=== PATIENT | female | born 1950 | race Caucasian/White ===

== ENCOUNTER → 2017-08-15 | Outpatient (CLI) | payer OTHER, MEDICARE ==
[~2017-08-15] MED LIST: DILT-111
[2017-08-15 16:33] LABS: BASO % 0.4 %; BASO ABS # 0.03 K/uL (0-0.2); COMPLETE YES; EOS % 0.3 %; HEMATOCRIT 42.8 % (37-47); IG% 0.3 %; LYMPH % 48.8 %; LYMPH ABS # 3.85 K/uL (1.2-3.4); MEAN CELL VOLUME 104.9 fL (80-100); MEAN CORPUSCULAR HGB CONC 33.4 g/dl (32-36); MONO % 5.4 %; NEUT % 44.8 %; PLATELET COUNT 217 K/uL (130-400); RED BLOOD COUNT 4.08 M/uL (4.2-5.4); WHITE BLOOD COUNT 7.89 K/uL (4.8-10.8)
[2017-08-15 17:10] LABS: BLOOD UREA NITROGEN 11 mg/dl (7-18); BUN/CREATININE RATIO 12.5 (10-20); CALCIUM 9.3 mg/dl (8.5-10.1); CARBON DIOXIDE 27 mmol/L (21-32); CHLORIDE 105 mmol/L (98-107); CREATININE 0.85 mg/dl (0.60-1.20); GLUCOSE 91 mg/dl (70-99); POTASSIUM 3.9 mmol/L (3.5-5.1); SODIUM 140 mmol/L (136-145)
== END | disposition home or self-care (01) ==
LOC: C.LAB1850 15:03
PROVIDERS: ATTEND Internal Medicine
DX: I10 Essential (primary) hypertension (principal)

== ENCOUNTER → 2017-09-29 | Outpatient (CLI) | payer OTHER, MEDICARE ==
--- NOTE | 2017-09-29 12:50 | MAMMOGRAPHY REPORT ---
BILATERAL DIGITAL SCREENING MAMMOGRAM WITH CAD: 09/29/2017 CLINICAL HISTORY: Routine screening. Patient has no complaints. TECHNIQUE: Current study was also evaluated with a Computer Aided Detection (CAD) system. Bilateral CC and MLO views were obtained. COMPARISON: Comparison is made to exams dated: 07/08/2015 mammogram, 07/07/2014 mammogram, 05/21/2013 m ammogram, 05/01/2012 mammogram, 03/25/2011 mammogram, and 03/24/2010 mammogram - [facility] enter. BREAST COMPOSITION: The tissue of both breasts is heterogeneously dense, which may obscure small mas ses. FINDINGS: No suspicious masses, calcifications, or areas of architectural distortion are noted in ei ther breast. There has been no significant interval change compared to prior exams. Nodular asymmetr y in the right superior posterior breast on the MLO view is stable compared to multiple prior exams i ncluding the 2012 and 2008 exams, and is considered benign given long-term stability and likely repre sents an intramammary lymph node. IMPRESSION: ACR BI-RADS CATEGORY 2: BENIGN There is no mammographic evidence of malignancy. A 1 year screening mammogram is recommended. The pa tient will receive written notification of the results. Approximately 10% of breast cancers are not detected with mammography. A negative mammographic report should not delay biopsy if a clinically suggestive mass is present. Mary Grace Aviles M.D. /:09/29/2017 12:20:48 Home Maker: Isabella Pearl RT(R)(M), [facility] letter sent: Normal 1/2 BI-RADS Code: ACR BI-RADS Category 2: Benign
== END | disposition home or self-care (01) ==
LOC: C.MAMM 11:36
PROVIDERS: ATTEND Internal Medicine
DX: Z12.31 Encounter for screening mammogram for malignant neoplasm of breast (principal)

== ENCOUNTER 2023-09-12 12:46 | Inpatient (IN) ==
--- NOTE | 2023-09-12 12:53 | Emergency Department Note ---
Impression & Plan Acute hypoxemic respiratory failure, RSV (respiratory syncytial virus infection), Viral pneumonia, Tobacco abuse ED Provider Note NAME: BETITO RIZVI AGE: 69 SEX: F : 02/23/1954 ARRIVES VIA: Walk-In INFORMANT: Patient, ED PROVIDER(S): Jad Richardson MD CHIEF COMPLAINT: Shortness of breath MEDICAL DECISION MAKING: Patient presents due to concern for associated shortness of breath. The patient was tachypneic with conversational dyspnea. IV was established blood obtained. Patient was ordered empiric antibiotics IV fluids procalcitonin blood cultures. Patient did receive nebulizer treatments steroids and magnesium as well. I did discuss starting the patient on antibiotics given the patient's history of partially treated UTI. Inpatient service order antibiotics. Patient's blood work shows a white count of 10.9 with a normal H&H and platelet count. The patient's VBG does show some mild acidosis but normal pCO2. Low sodium at 134 and potassium 3.1. Lactate of 1.9 procalcitonin is not elevated. Patient was ordered a MRSA swab. Bio fire positive for RSV. Urinalysis without evidence of obvious infection. Chest x-ray does not show any obvious consolidative pneumonia. Upon reassessment the patient clinically did appear improved and was currently off BiPAP. I did speak with the inpatient hospitalist service and the patient was admitted to the medicine service. Patient's heart rate did improve with IV fluids as well as medication management Critical Care: I have personally spent 45 minutes of critical care time in direct management of this patient. This includes bedside care, interpretation of diagnostic studies, and testing, discussion with consultants, patient, and family members, and other require inpatient management activities. This 45 minutes is in excess of all separately billable procedures. Discussion w/ other healthcare providers: Dr. Marr inpatient medicine Prior /Outside records reviewed: I reviewed a wellness visit from August 02, [address] Moncada. Patient was seen for her Medicare annual wellness exam does have a known history of monoclonal B-cell lymphocytosis. Differential diagnosis: Reactive airway disease, pneumonia, pneumothorax, COPD, CHF, ACS, pulmonary embolism, musculoskeletal, GERD as well as other pathologies were considered. Diagnostics, as interpreted by me: ECG: Sinus tachycardia, ventricular rate of 116 normal QRS duration, left axis deviation, incomplete right bundle branch block. Cardiac monitoring: An order was placed for continuous cardiac monitoring. The monitor shows a rate of 135 with tachycardic and regular rhythm. Patient was placed on pulse oximetry Medical decision rules: None Imaging studies: I informally interpreted the patient's chest x-ray which does not show obvious pneumonia or pneumothorax with formal report to follow. HPI: Patient presents with upper respiratory symptoms and associated shortness of breath. Patient states that her symptoms began Monday or Monday and they have gotten progressively worse. The patient does admit to a cough that is somewhat productive but not discolored with sputum. The patient does smoke. Patient does not have any formal history of COPD or reactive airway disease. Patient denies any chest pains. Patient [place] any leg swelling or calf pain. The patient reportedly was feeling quite winded and short of breath at rest at home and her pulse ox on room air was in the 84%. Patient is accompanied by her and he also relates the same. He is a former emergency department physician. Patient denies any nausea or vomiting but has had decreased p.o. intake and appetite PAST MEDICAL HISTORY: See Below PAST SURGICAL HISTORY: See Below SOCIAL HISTORY: See Below HOME MEDICATIONS: See Below ALLERGIES: See Below VITALS: See Below PHYSICAL EXAMINATION: GENERAL: Thin in appearance, wearing glasses, mild distress conversational dyspnea nasal cannula in place. EYE EXAM: Normal conjunctiva. PERRL, no anisocoria and EOM's grossly intact w/o pain. OROPHARYNX: Moist mucus membranes, grossly normal dentition. NECK: Supple, no nuchal rigidity, no adenopathy, non-tender. No signs of meningismus. FROM of the neck with good chin to chest and neck extension. No stridor. LUNGS: Decreased breath sounds throughout. Normal chest wall mechanics. HEART: NSR, no MRG. ABDOMEN: Abdomen soft, non-tender, no masses, no rebound or guarding. BACK: No CVA TTP. SKIN: No rashes and no bruising. UPPER EXTREMITIES: Upper extremities are grossly normal. LOWER EXTREMITIES: Grossly normal, no edema. Negative Homans' sign bilaterally. NEURO EXAM: A&O x3, cranial nerves II-XII grossly intact, normal speech, moves all 4 extremities. Past Med/Surg History Medical History (Updated 09/13/23 @ 16:57 by Jad Richardson MD) Monoclonal B-cell lymphocytosis Underweight Celiac sprue Arthralgia of multiple sites Fibromuscular hyperplasia of artery Macrocytosis Osteoporosis Surgical History (System 09/13/23 @ 07:41 by Anna Crisostomo) S/P wisdom tooth extraction S/P cholecystectomy S/P ectopic Family History Mother Breast cancer Father Myocardial infarction Denies family history of Ovarian cancer Prostate cancer Colorectal cancer Social History (System 09/13/23 @ 07:41 by Anna Crisostomo) Smoking Status: Light tobacco smoker Second Hand Exposure: No; Do You Dip or Chew Tobacco: No; Hx Alcohol Use: Yes (1-2 glass of wine at dinner) Alcohol type: wine Hx Substance Use: No Preferred Language: Hungarian Communication Ability: Effective Glass Carrier Required: No Beliefs That Will Affect Care: None marital status: Current Living Situation: Spouse current occupational status: retired Other Information That Helps Us Care for You: No Feels Safe at Home: Yes Childhood Exposure to Second-Hand Smoke: Yes Dental Care, Regularly: Yes Physical Activity Frequency: 1-2 Times per Week Seatbelt Use: always Sunscreen Use: Yes Assistive Devices: None Allergies Allergies Allergy/AdvReac Type Severity Reaction Status Date / Time Sulfa (Sulfonamide Allergy Unknown RASH Verified 09/13/23 07:41 Antibiotics) Home Meds Home Medications Medication Instructions Recorded Confirmed diltiazem HCl 240 mg 240 mg PO DAILY 09/12/23 09/12/23 capsule,extended release 24 hr fluticasone propionate 50 2 spray intranasal DAILY PRN 09/12/23 09/12/23 mcg/actuation nasal Allergy Symptoms spray,suspension indapamide 1.25 mg tablet 1.25 mg PO DAILY 09/12/23 09/12/23 Previous Rx's Medication Instructions Recorded diltiazem HCl 240 mg 240 mg PO DAILY #90 caps 08/02/23 capsule,extended release 24 hr fluticasone propionate 50 2 spray intranasal DAILY PRN 08/02/23 mcg/actuation nasal allergy symptoms #16 grams spray,suspension indapamide 1.25 mg tablet 1.25 mg PO DAILY #90 tabs 08/02/23 nitrofurantoin macrocrystal 50 mg 50 mg PO DAILY PRN following 08/02/23 capsule intercourse for UTI prevention #30 caps Results & Data (ED) Vital Signs Vital Signs - 24 hr 09/12/23 17:19 09/12/23 17:36 09/12/23 18:46 Temperature Temperature Source Pulse Rate 77 Pulse Rate [Exercise O2 Corrective 1] Pulse Rate [Exercise O2 Corrective 2] Pulse Rate [Exercise Room Air] Pulse Rate [Resting] Pulse Rate [Right] 91 H 73 Respiratory Rate 20 12 Respiratory Rate [Exercise O2 Corrective 1] Respiratory Rate [Exercise O2 Corrective 2] Respiratory Rate [Exercise Room Air] Respiratory Rate [Resting] Respiratory Effort / Characteristics Respiratory Depth Respiratory Pattern Blood Pressure [Right Arm] 124/73 117/73 Blood Pressure Mean [Right Arm] 90 87 Blood Pressure Position [Right Arm] Pulse Oximetry 94 96 Pulse Oximetry [Exercise O2 Corrective 1] Pulse Oximetry [Exercise O2 Corrective 2] Pulse Oximetry [Exercise Room Air] Pulse Oximetry [Resting] Oxygen Delivery Method Nasal Cannula Nasal Cannula Oxygen Flow Rate 3 Oxygen Flow Rate [Exercise O2 Corrective 1] Oxygen Flow Rate [Exercise O2 Corrective 2] EWS Level of Consciousness - Last Result EWS Temperature - Last Result EWS Respiratory Rate - Last Result EWS Oxygen Saturation - Last Result EWS Oxygen in Use - Last Result EWS Lactate - Last Result EWS Score EWS Clinical Risk 09/12/23 20:25 09/12/23 20:25 09/12/23 21:50 Temperature 37.0 C 36.3 C L Temperature Source Oral Oral Pulse Rate Pulse Rate [Exercise O2 Corrective 1] Pulse Rate [Exercise O2 Corrective 2] Pulse Rate [Exercise Room Air] Pulse Rate [Resting] Pulse Rate [Right] 87 90 Respiratory Rate 17 16 Respiratory Rate [Exercise O2 Corrective 1] Respiratory Rate [Exercise O2 Corrective 2] Respiratory Rate [Exercise Room Air] Respiratory Rate [Resting] Respiratory Effort / Characteristics Spontaneous Spontaneous Short of Breath Respiratory Depth Normal Respiratory Pattern Regular Regular Blood Pressure [Right Arm] 116/72 123/86 Blood Pressure Mean [Right Arm] 86 98 Blood Pressure Position [Right Arm] Sitting Pulse Oximetry 97 98 Pulse Oximetry [Exercise O2 Corrective 1] Pulse Oximetry [Exercise O2 Corrective 2] Pulse Oximetry [Exercise Room Air] Pulse Oximetry [Resting] Oxygen Delivery Method Nasal Cannula Nasal Cannula Nasal Cannula Oxygen Flow Rate 2 2 2 Oxygen Flow Rate [Exercise O2 Corrective 1] Oxygen Flow Rate [Exercise O2 Corrective 2] EWS Level of Consciousness - Last Result EWS Temperature - Last Result EWS Respiratory Rate - Last Result EWS Oxygen Saturation - Last Result EWS Oxygen in Use - Last Result EWS Lactate - Last Result EWS Score EWS Clinical Risk 09/12/23 22:00 09/12/23 22:00 09/12/23 22:00 Temperature Temperature Source Pulse Rate 64 Pulse Rate [Exercise O2 Corrective 1] Pulse Rate [Exercise O2 Corrective 2] Pulse Rate [Exercise Room Air] Pulse Rate [Resting] Pulse Rate [Right] Respiratory Rate Respiratory Rate [Exercise O2 Corrective 1] Respiratory Rate [Exercise O2 Corrective 2] Respiratory Rate [Exercise Room Air] Respiratory Rate [Resting] Respiratory Effort / Characteristics Non-Labored Spontaneous Short of Breath SOB on Exertion Respiratory Depth Normal Respiratory Pattern Regular Blood Pressure [Right Arm] Blood Pressure Mean [Right Arm] Blood Pressure Position [Right Arm] Pulse Oximetry Pulse Oximetry [Exercise O2 Corrective 1] Pulse Oximetry [Exercise O2 Corrective 2] Pulse Oximetry [Exercise Room Air] Pulse Oximetry [Resting] Oxygen Delivery Method Nasal Cannula Oxygen Flow Rate 2 Oxygen Flow Rate [Exercise O2 Corrective 1] Oxygen Flow Rate [Exercise O2 Corrective 2] EWS Level of Consciousness - Last Result Spontaneously Alert EWS Temperature - Last Result 36.3 EWS Respiratory Rate - Last Result 16 EWS Oxygen Saturation - Last Result 98 EWS Oxygen in Use - Last Result Yes EWS Lactate - Last Result 1.9 EWS Score 0 EWS Clinical Risk Low Risk 09/13/23 03:16 09/13/23 03:17 09/13/23 06:00 Temperature 36.4 C L Temperature Source Oral Pulse Rate 76 Pulse Rate [Exercise O2 Corrective 1] Pulse Rate [Exercise O2 Corrective 2] Pulse Rate [Exercise Room Air] Pulse Rate [Resting] Pulse Rate [Right] 79 Respiratory Rate 18 Respiratory Rate [Exercise O2 Corrective 1] Respiratory Rate [Exercise O2 Corrective 2] Respiratory Rate [Exercise Room Air] Respiratory Rate [Resting] Respiratory Effort / Characteristics Respiratory Depth Respiratory Pattern Blood Pressure [Right Arm] 122/85 Blood Pressure Mean [Right Arm] 97 Blood Pressure Position [Right Arm] Lying Pulse Oximetry 97 Pulse Oximetry [Exercise O2 Corrective 1] Pulse Oximetry [Exercise O2 Corrective 2] Pulse Oximetry [Exercise Room Air] Pulse Oximetry [Resting] Oxygen Delivery Method Nasal Cannula Oxygen Flow Rate 2 Oxygen Flow Rate [Exercise O2 Corrective 1] Oxygen Flow Rate [Exercise O2 Corrective 2] EWS Level of Consciousness - Last Result Spontaneously Alert EWS Temperature - Last Result 36.4 EWS Respiratory Rate - Last Result 18 EWS Oxygen Saturation - Last Result 97 EWS Oxygen in Use - Last Result Yes EWS Lactate - Last Result 1.9 EWS Score 0 EWS Clinical Risk Low Risk 09/13/23 08:45 09/13/23 08:46 09/13/23 10:08 Temperature 36.7 C Temperature Source Oral Pulse Rate Pulse Rate [Exercise O2 Corrective 1] 117 H Pulse Rate [Exercise O2 Corrective 2] 113 H Pulse Rate [Exercise Room Air] 117 H Pulse Rate [Resting] 103 H Pulse Rate [Right] 72 Respiratory Rate 16 Respiratory Rate [Exercise O2 Corrective 1] 19 Respiratory Rate [Exercise O2 Corrective 2] 21 Respiratory Rate [Exercise Room Air] 19 Respiratory Rate [Resting] 15 Respiratory Effort / Characteristics Respiratory Depth Respiratory Pattern Blood Pressure [Right Arm] 123/88 Blood Pressure Mean [Right Arm] 99 Blood Pressure Position [Right Arm] Pulse Oximetry 98 Pulse Oximetry [Exercise O2 Corrective 1] 87 L Pulse Oximetry [Exercise O2 Corrective 2] 92 Pulse Oximetry [Exercise Room Air] 86 L Pulse Oximetry [Resting] 92 Oxygen Delivery Method Nasal Cannula Oxygen Flow Rate 2 Oxygen Flow Rate [Exercise O2 Corrective 1] 1 Oxygen Flow Rate [Exercise O2 Corrective 2] 2 EWS Level of Consciousness - Last Result Spontaneously Alert EWS Temperature - Last Result 36.7 EWS Respiratory Rate - Last Result 16 EWS Oxygen Saturation - Last Result 98 EWS Oxygen in Use - Last Result Yes EWS Lactate - Last Result 1.9 EWS Score 0 EWS Clinical Risk Low Risk 09/13/23 11:54 09/13/23 11:55 Temperature 36.6 C Temperature Source Oral Pulse Rate Pulse Rate [Exercise O2 Corrective 1] Pulse Rate [Exercise O2 Corrective 2] Pulse Rate [Exercise Room Air] Pulse Rate [Resting] Pulse Rate [Right] 96 H Respiratory Rate 16 Respiratory Rate [Exercise O2 Corrective 1] Respiratory Rate [Exercise O2 Corrective 2] Respiratory Rate [Exercise Room Air] Respiratory Rate [Resting] Respiratory Effort / Characteristics Respiratory Depth Respiratory Pattern Blood Pressure [Right Arm] 128/82 Blood Pressure Mean [Right Arm] 97 Blood Pressure Position [Right Arm] Pulse Oximetry 95 Pulse Oximetry [Exercise O2 Corrective 1] Pulse Oximetry [Exercise O2 Corrective 2] Pulse Oximetry [Exercise Room Air] Pulse Oximetry [Resting] Oxygen Delivery Method Room Air Oxygen Flow Rate Oxygen Flow Rate [Exercise O2 Corrective 1] Oxygen Flow Rate [Exercise O2 Corrective 2] EWS Level of Consciousness - Last Result Spontaneously Alert EWS Temperature - Last Result 36.6 EWS Respiratory Rate - Last Result 16 EWS Oxygen Saturation - Last Result 95 EWS Oxygen in Use - Last Result No EWS Lactate - Last Result 1.9 EWS Score 2 EWS Clinical Risk Low Risk Home Medications Current Medication List: was personally reviewed by me Laboratory Data Attestation: I reviewed the patient's lab results. 09/13/23 05:21 09/13/23 05:21 Lab Results 09/12/23 09/12/23 09/12/23 Range/Units 13:27 14:16 15:59 WBC 10.93 H (4.8-10.8) K/ul RBC 4.46 (4.20-5.40) M/uL Hgb 15.7 (12.0-16.0) g/dl Hct 45.9 (37.0-47.0) % MCV 102.9 H (80.0-100.0) fL MCH 35.2 H (25.0-34.0) pg MCHC 34.2 (32.0-36.0) g/dL RDW Std Deviation 45.3 (36.4-46.3) fL RDW Coeff of Carolyn 11.9 (11.5-14.5) % Plt Count 204 (130-400) K/uL MPV 9.9 (9.4-12.4) fL Immature Gran % (Auto) 0.5 % Neut % (Auto) 76.5 % Lymph % (Auto) 18.1 % [place] % (Auto) 4.8 % Eos % (Auto) 0.0 % Baso % (Auto) 0.1 % Neut # (Auto) 8.35 H (1.40-6.50) K/uL Lymph # (Auto) 1.98 (1.20-3.40) K/uL [place] # (Auto) 0.53 (0.11-0.59) K/uL Eos # (Auto) 0.00 (0.00-0.50) K/uL Baso # (Auto) 0.01 (0.00-0.20) K/uL Immature Gran # (Auto) 0.06 (0.01-0.20) K/uL Polychromasia PT 10.7 (9.0-12.0) Seconds INR 1.0 (0.9-1.1) APTT 32 H (21-31) Seconds PTT Ratio 1.1 VBG pH 7.31 L (7.36-7.41) VBG pCO2 49 (38-50) mmHg VBG pO2 23 mmHg VBG HCO3 25 mmol/L VBG O2 Saturation < 60.0 % VBG Base Excess -2.1 mEq/L Sodium 134 L (136-145) mmol/L Potassium 3.1 L (3.5-5.1) mmol/L Chloride 96 L (98-107) mmol/L Carbon Dioxide 25 (21-32) mmol/L Anion Gap 13 H (3-11) BUN 14 (6-23) mg/dl Creatinine 0.81 (0.6-1.2) mg/dl Est Cr Clr Drug Dosing Not Reportable Est GFR ( Amer) 84.1 ml/min Est GFR (Non-Af Amer) 72.6 ml/min BUN/Creatinine Ratio 17.3 (10-20) Glucose 142 H (70-99(Fasting)) mg/dl Lactate 1.9 (0.4-2.0) mmol/L Calcium 9.6 (8.6-10.3) mg/dl Phosphorus 3.9 (2.5-4.9) mg/dl Magnesium 1.9 (1.7-2.4) mg/dl Total Bilirubin 0.8 (0.2-1.0) mg/dl AST 22 (13-39) U/L ALT 14 (7-52) U/L Alkaline Phosphatase 73 (34-104) U/L Total Protein 7.7 (6.0-8.3) gm/dl Albumin 4.4 (3.4-5.0) gm/dl Globulin 3.3 (2.5-4.0) gm/dl Albumin/Globulin Ratio 1.3 (0.9-2) Procalcitonin < 0.05 (0-0.5) ng/ml Urine Color Urine Appearance (Clear) Urine pH (4.5-7.5) Ur Specific [place] (1.000-1.030) Urine Protein (Negative) Urine Glucose (UA) (Negative) Urine Ketones (Negative) Urine Blood (Negative) Urine Nitrite (Negative) Urine Bilirubin (Negative) Urine Urobilinogen (Negative) Ur Leukocyte Esterase (Negative) Urine WBC (Auto) (0-5) /hpf Urine RBC (Auto) (0-4) /hpf U Hyaline Cast (Auto) (0-5) /lpf U Epithel Cells (Auto) (0-5) /lpf Urine Bacteria (Auto) (Negative) Nasal Screen MRSA (PCR) Negative (Negative) Adenovirus (PCR) (NotDetected) B. pertussis DNA (PCR) (NotDetected) B.parapertussis DNA PCR (NotDetected) C. pneumoniae DNA (PCR) (NotDetected) Coronavirus OC43 (PCR) (NotDetected) Coronavirus HKU1 (PCR) (NotDetected) Coronavirus 229E (PCR) (NotDetected) SARS-CoV-2 (PCR) (NotDetected) Coronavirus NL63 (PCR) (NotDetected) Human Metapneumovir PCR (NotDetected) Influenza Type A (PCR) (NotDetected) Influenza Type B (PCR) (NotDetected) M. pneumoniae (PCR) (NotDetected) Parainfluenza 1 (PCR) (NotDetected) Parainfluenza 2 (PCR) (NotDetected) Parainfluenza 3 (PCR) (NotDetected) Parainfluenza 4 (PCR) (NotDetected) RSV (PCR) (NotDetected) Entero/Rhino (PCR) (NotDetected) 09/12/23 09/13/23 09/13/23 Range/Units Unknown 04:45 05:21 WBC 8.38 (4.8-10.8) K/ul RBC 3.81 L (4.20-5.40) M/uL Hgb 13.3 (12.0-16.0) g/dl Hct 39.6 (37.0-47.0) % MCV 103.9 H (80.0-100.0) fL MCH 34.9 H (25.0-34.0) pg MCHC 33.6 (32.0-36.0) g/dL RDW Std Deviation 45.7 (36.4-46.3) fL RDW Coeff of Carolyn 11.9 (11.5-14.5) % Plt Count 159 (130-400) K/uL MPV 10.0 (9.4-12.4) fL Immature Gran % (Auto) 0.5 % Neut % (Auto) 71.0 % Lymph % (Auto) 23.0 % [place] % (Auto) 5.4 % Eos % (Auto) 0.0 % Baso % (Auto) 0.1 % Neut # (Auto) 5.95 (1.40-6.50) K/uL Lymph # (Auto) 1.93 (1.20-3.40) K/uL [place] # (Auto) 0.45 (0.11-0.59) K/uL Eos # (Auto) 0.00 (0.00-0.50) K/uL Baso # (Auto) 0.01 (0.00-0.20) K/uL Immature Gran # (Auto) 0.04 (0.01-0.20) K/uL Polychromasia 1+ PT (9.0-12.0) Seconds INR (0.9-1.1) APTT (21-31) Seconds PTT Ratio VBG pH (7.36-7.41) VBG pCO2 (38-50) mmHg VBG pO2 mmHg VBG HCO3 mmol/L VBG O2 Saturation % VBG Base Excess mEq/L Sodium 139 (136-145) mmol/L Potassium 3.8 D (3.5-5.1) mmol/L Chloride 106 (98-107) mmol/L Carbon Dioxide 26 (21-32) mmol/L Anion Gap 7 (3-11) BUN 15 (6-23) mg/dl Creatinine 0.65 (0.6-1.2) mg/dl Est Cr Clr Drug Dosing 57.8 Est GFR ( Amer) 102.8 ml/min Est GFR (Non-Af Amer) 88.7 ml/min BUN/Creatinine Ratio 23.1 H (10-20) Glucose 133 H (70-99(Fasting)) mg/dl Lactate (0.4-2.0) mmol/L Calcium 8.8 (8.6-10.3) mg/dl Phosphorus (2.5-4.9) mg/dl Magnesium (1.7-2.4) mg/dl Total Bilirubin (0.2-1.0) mg/dl AST (13-39) U/L ALT (7-52) U/L Alkaline Phosphatase (34-104) U/L Total Protein (6.0-8.3) gm/dl Albumin (3.4-5.0) gm/dl Globulin (2.5-4.0) gm/dl Albumin/Globulin Ratio (0.9-2) Procalcitonin (0-0.5) ng/ml Urine Color Yellow Urine Appearance Cloudy A (Clear) Urine pH 6.5 (4.5-7.5) Ur Specific [place] 1.023 (1.000-1.030) Urine Protein 1+ H (Negative) Urine Glucose (UA) Negative (Negative) Urine Ketones Trace H (Negative) Urine Blood Negative (Negative) Urine Nitrite Negative (Negative) Urine Bilirubin Negative (Negative) Urine Urobilinogen Negative (Negative) Ur Leukocyte Esterase Negative (Negative) Urine WBC (Auto) 1-5 (0-5) /hpf Urine RBC (Auto) 0-4 (0-4) /hpf U Hyaline Cast (Auto) 1-5 (0-5) /lpf U Epithel Cells (Auto) >30 H (0-5) /lpf Urine Bacteria (Auto) Negative (Negative) Nasal Screen MRSA (PCR) (Negative) Adenovirus (PCR) Not Detected (NotDetected) B. pertussis DNA (PCR) Not Detected (NotDetected) B.parapertussis DNA PCR Not Detected (NotDetected) C. pneumoniae DNA (PCR) Not Detected (NotDetected) Coronavirus OC43 (PCR) Not Detected (NotDetected) Coronavirus HKU1 (PCR) Not Detected (NotDetected) Coronavirus 229E (PCR) Not Detected (NotDetected) SARS-CoV-2 (PCR) Not Detected (NotDetected) Coronavirus NL63 (PCR) Not Detected (NotDetected) Human Metapneumovir PCR Not Detected (NotDetected) Influenza Type A (PCR) Not Detected (NotDetected) Influenza Type B (PCR) Not Detected (NotDetected) M. pneumoniae (PCR) Not Detected (NotDetected) Parainfluenza 1 (PCR) Not Detected (NotDetected) Parainfluenza 2 (PCR) Not Detected (NotDetected) Parainfluenza 3 (PCR) Not Detected (NotDetected) Parainfluenza 4 (PCR) Not Detected (NotDetected) RSV (PCR) DETECTED A* (NotDetected) Entero/Rhino (PCR) Not Detected (NotDetected) Administered Medications Albuterol (Albut/Ipratrop 3mg/0.5mg Neb 3 Ml Vial) 3 ml NEB QIDR [facility]; Protocol Stop: 10/13/23 14:59 Last Admin: 09/13/23 15:20 Dose: 3 ml Documented By: [id number] Diltiazem HCl (Diltiazem Hcl 240 Mg Capcr) 240 mg PO DAILY [facility] Stop: 10/13/23 08:59 Last Admin: 09/13/23 10:33 Dose: 240 mg Documented By: FAZAL Enoxaparin Sodium (Enoxaparin Inj 30 Mg/0.3 Ml Syr) 30 mg SQ QAM [facility] Stop: 10/13/23 08:59 Last Admin: 09/13/23 10:33 Dose: 30 mg Documented By: FAZAL Guaifenesin (Guaifenesin 600 Mg Tabcr) 600 mg PO Q12 [facility] Stop: 10/12/23 20:59 Last Admin: 09/13/23 10:33 Dose: 600 mg Documented By: Admin: 09/12/23 20:15 Dose: 600 mg Documented By: MARICRUZ Indapamide (Indapamide 1.25 Mg Tab) 1.25 mg PO DAILY [facility] Stop: 10/13/23 08:59 Last Admin: 09/13/23 10:33 Dose: 1.25 mg Documented By: FAZAL Miscellaneous (Remove Nicoderm Patch) 1 each N/A DAILY@0859 [facility] Stop: 10/13/23 08:58 Last Admin: 09/13/23 10:32 Dose: Not Given Documented By: FAZAL Discontinued Medications Magnesium Sulfate/Dextrose (Magnesium Sulfate / D5w) 1 gm in 100 mls @ 300 mls/hr IV Q10M [facility] Stop: 09/12/23 13:42 Last Infusion: 09/12/23 17:41 Dose: Infused Documented By: Admin: 09/12/23 17:18 Dose: 100 mls/hr Documented By: Infusion: 09/12/23 15:13 Dose: Infused Documented By: Admin: 09/12/23 13:40 Dose: 300 mls/hr Documented By: KV Doxycycline Hyclate 100 mg/ (Dextrose) 100 mls @ 50 mls/hr IV NOW STA Stop: 09/12/23 15:20 Last Infusion: 09/12/23 17:18 Dose: Infused Documented By: Admin: 09/12/23 15:13 Dose: 50 mls/hr Documented By: HANNAHB Piperacillin Sod/Tazobactam Sod (Zosyn) 4.5 gm in 100 mls @ 200 mls/hr IV NOW ONE Stop: 09/12/23 13:50 Last Infusion: 09/12/23 15:25 Dose: Infused Documented By: Admin: 09/12/23 13:39 Dose: 200 mls/hr Documented By: ROBE Sodium Chloride (Nss) 1,000 mls @ 999 mls/hr IV .Q1H1M ONE Stop: 09/12/23 14:21 Last Infusion: 09/12/23 15:25 Dose: Infused Documented By: Admin: 09/12/23 13:39 Dose: 999 mls/hr Documented By: KV Sodium Chloride (Nss) 500 mls @ 999 mls/hr IV .Q31M ONE Stop: 09/12/23 13:51 Last Infusion: 09/12/23 15:25 Dose: Infused Documented By: Admin: 09/12/23 13:40 Dose: 999 mls/hr Documented By: KV Methylprednisolone (Methylprednisolone 125 Mg/2 Ml Vial) 125 mg IV NOW STA Stop: 09/12/23 13:33 Last Admin: 09/12/23 13:39 Dose: 125 mg Documented By: KV Potassium Chloride (Potassium Chloride Crtab 20 Meq Tabcr) 40 meq PO NOW STA Stop: 09/12/23 14:58 Last Admin: 09/12/23 15:58 Dose: 40 meq Documented By: ASW Potassium Chloride (Potassium Chloride Crtab 20 Meq Tabcr) 20 meq PO ONE ONE Stop: 09/12/23 21:01 Last Admin: 09/12/23 20:15 Dose: 20 meq Documented By: AMS Imaging Data Radiologist's Impression: Chest X-Ray 09/12/23 13:21 XR chest 1V portable CLINICAL HISTORY: Dyspnea. COMPARISON STUDY: No previous studies for comparison. FINDINGS: Lung volumes are normal. There is no consolidation to suggest pneumonia. 1 cm nodular density inferior to the right hilum is noted. 1.1 cm left infrahilar nodular density is noted There is no pneumothorax or pleural effusion. Cardiac size is normal. Mediastinal contours are normal. There is no evidence for pulmonary edema. IMPRESSION: 1. No acute cardiopulmonary findings. 2. Bilateral infrahilar nodular densities, as described above. Nonemergent chest CT is recommended to exclude pulmonary nodules. ACT 112: Positive. There are findings on this exam that require communication between the performing entity and the patient following Patient Test Result Information Act ([place] Act 112) guidelines. Electronically signed by: Ari Knox M.D. 09/12/2023 2:[address] 09/12/23 18:09 Exam(s): CT CHEST Without Contrast EXAM: CT Chest Without Intravenous Contrast CLINICAL HISTORY: Reason for exam: hilar nodular densities, hypoxia. TECHNIQUE: Axial computed tomography images of the chest without intravenous contrast. CTDI is 6.42 mGy and DLP is 242.8 mGy-cm. Automated exposure control was utilized for the study. A dose lowering technique was utilized adhering to the principles of ALARA. COMPARISON: No relevant prior studies available. FINDINGS: Lungs: Mild, patchy bilateral opacities, correlate for mild pneumonia. There may be early cavitation in a few of these areas of atelectasis. Recommend follow-up chest CT after treatment to reevaluate. Pleural space: Unremarkable. No pleural effusion or pneumothorax. Heart: Unremarkable. No cardiomegaly. No significant pericardial effusion. No significant coronary artery calcifications. Bones/joints: Degenerative changes of the spine. No acute fracture. No dislocation. Soft tissues: Unremarkable. Vasculature: Atherosclerotic changes of the aorta. No thoracic aortic aneurysm. Lymph nodes: Unremarkable. No enlarged lymph nodes. Liver: Cystic lesion LEFT hepatic lobe measures 2.6 cm. Gallbladder and bile ducts: Cholecystectomy. IMPRESSION: 1. Mild, patchy bilateral opacities, correlate for mild pneumonia. Suspected, early cavitation in a few of these areas of atelectasis. Recommend follow-up chest CT after treatment to reevaluate. 2. No pleural effusion or pneumothorax. Electronically signed by: Rafiq Maldonado MD 09/12/23 20:04 PM Discharge Plan Visit Data Chief Complaint: Shortness of Breath/Dyspnea Stated Complaint: SOB, LOW OX SAT, COUGH ED Provider: Jad Richardson Discharge Problem: Acute hypoxemic respiratory failure, RSV (respiratory syncytial virus infection), Viral pneumonia, Tobacco abuse Patient Disposition: Admitted As Inpatient Discharge Instructions Interventions: ED Discharge Assessment Last Done: 09/12/23 21:26
[2023-09-12] MEDS ORDERED: SODIUM CHLORIDE 0.9% 1,000 ML IV ONE (13:21)
[2023-09-12] MEDS ORDERED: PIPERACILLIN/TAZOBACTAM 4.5 GM/100 ML BAG IV ONE (13:21)
[2023-09-12] MEDS ORDERED: DOXYCYCLINE HYCLATE 100 MG in DEXTROSE 5% MINI-B 100 ML IV STA (13:21)
[2023-09-12] MEDS ORDERED: SODIUM CHLORIDE 0.9% 500 ML IV ONE (13:21)
[2023-09-12] MEDS ORDERED: methylPREDNISolone 125 MG/2 ML VIAL IV STA (13:32)
[2023-09-12] MEDS: MAGNESIUM SULFATE / D5W 1 GM/100 ML BAG IV SCH ×2 (13:40→17:18)
[2023-09-12 13:58] LABS: Hematocrit (blood only) 45.9 % (37.0-47.0); Hemoglobin 15.7 g/dl (12.0-16.0); Mean Corpuscular Hemoglobin 35.2 pg (25.0-34.0); Mean Corpuscular Hgb Conc 34.2 g/dL (32.0-36.0); Mean Corpuscular Volume 102.9 fL (80.0-100.0); Mean Platelet Volume 9.9 fL (9.4-12.4); Platelet Count 204 K/uL (130-400); RDW Coefficient of Variation 11.9 % (11.5-14.5); RDW Standard Deviation 45.3 fL (36.4-46.3); Red Blood Count 4.46 M/uL (4.20-5.40); White Blood Count 10.93 K/ul (4.8-10.8)
[2023-09-12 14:08] LABS: Partial Thromboplastin Ratio 1.1; Partial Thromboplastin Time 32 Seconds (21-31); Prothrombin Time 10.7 Seconds (9.0-12.0)
[2023-09-12 14:10] LABS: Alanine Aminotransferase 14 U/L (7-52); Albumin Globulin Ratio 1.3 (0.9-2); Albumin Level 4.4 gm/dl (3.4-5.0); Alkaline Phosphatase 73 U/L (34-104); Anion Gap 13 (3-11); Aspartate Aminotransferase 22 U/L (13-39); BUN Creatinine Ratio 17.3 (10-20); Bilirubin,Total 0.8 mg/dl (0.2-1.0); Blood Urea Nitrogen 14 mg/dl (6-23); Calcium 9.6 mg/dl (8.6-10.3); Carbon Dioxide 25 mmol/L (21-32); Chloride 96 mmol/L (98-107); Est GFR (African American) 84.1 ml/min; Est GFR (Non-African American) 72.6 ml/min; Globulin 3.3 gm/dl (2.5-4.0); Glucose 142 mg/dl (70-99(Fasting)); Magnesium 1.9 mg/dl (1.7-2.4); Phosphorus 3.9 mg/dl (2.5-4.9); Potassium 3.1 mmol/L (3.5-5.1); Sodium 134 mmol/L (136-145); Total Protein 7.7 gm/dl (6.0-8.3)
--- NOTE | 2023-09-12 14:13 | XRay Report ---
XR chest 1V portable CLINICAL HISTORY: Dyspnea. COMPARISON STUDY: No previous studies for comparison. FINDINGS: Lung volumes are normal. There is no consolidation to suggest pneumonia. 1 cm nodular densi ty inferior to the right hilum is noted. 1.1 cm left infrahilar nodular density is noted There is no pneumothorax or pleural effusion. Cardiac size is normal. Mediastinal contours are normal. There is n o evidence for pulmonary edema. IMPRESSION: 1. No acute cardiopulmonary findings. 2. Bilateral infrahilar nodular densities, as described above. Nonemergent chest CT is recommended to exclude pulmonary nodules. ACT 112: Positive. There are findings on this exam that require communication between the performing entity and the patient following Patient Test Result Information Act ([place] Act 112) guidelines. Electronically signed by: Ari Knox M.D. 09/12/2023 2:10 PM
[2023-09-12 14:26] LABS: Base Excess VBG -2.1 mEq/L; HCO3 VBG 25 mmol/L; Oxygen Saturation VBG < 60.0 %; PCO2 VBG 49 mmHg (38-50); PO2 VBG 23 mmHg; pH VBG 7.31 (7.36-7.41)
[2023-09-12 14:26] LABS: Adenovirus PCR Not Detected (NotDetected); Bordetella parapertussis PCR Not Detected (NotDetected); Bordetella pertussis PCR Not Detected (NotDetected); Chlamydia pneumoniae PCR Not Detected (NotDetected); Coronavirus 229E PCR Not Detected (NotDetected); Coronavirus CoV-2 (COVID19)PCR Not Detected (NotDetected); Coronavirus HKU1 PCR Not Detected (NotDetected); Coronavirus NL63 PCR Not Detected (NotDetected); Coronavirus OC43PCR Not Detected (NotDetected); Human Metapneumovirus PCR Not Detected (NotDetected); Influenza A PCR Not Detected (NotDetected); Influenza B PCR Not Detected (NotDetected); Mycoplasma pneumoniae PCR Not Detected (NotDetected); Parainfluenza Virus 1 PCR Not Detected (NotDetected); Parainfluenza Virus 2 PCR Not Detected (NotDetected); Parainfluenza Virus 3 PCR Not Detected (NotDetected); Parainfluenza Virus 4 PCR Not Detected (NotDetected); Rhinovirus/Enterovirus PCR Not Detected (NotDetected)
[2023-09-12 14:29] LABS: Basophils # (auto) 0.01 K/uL (0.00-0.20); Basophils % (auto) 0.1 %; Immature Granulocytes # (auto) 0.06 K/uL (0.01-0.20); Immature Granulocytes % (auto) 0.5 %; Lymphocytes # (auto) 1.98 K/uL (1.20-3.40); Lymphocytes % (auto) 18.1 %; Monocytes # (auto) 0.53 K/uL (0.11-0.59); Monocytes % (auto) 4.8 %; Neutrophils # (auto) 8.35 K/uL (1.40-6.50); Neutrophils % (auto) 76.5 %
[2023-09-12 14:45] LABS: Respiratory Syncytial VirusPCR DETECTED (NotDetected)
[2023-09-12] MEDS ORDERED: POTASSIUM CHLORIDE CRTAB 20 MEQ TABCR PO STA (14:57)
--- NOTE | 2023-09-12 15:10 | History & Physical Report ---
Date of Service September 12, 2023 Assessment & Plan (1) RSV (respiratory syncytial virus infection): Plan: Patient presented with hypoxia and tachycardia. Patient with new oxygen requirement. BioFire positive for RSV which is the likely causative agent for symptoms. Patient received empiric doxy and Zosyn in the ED. Procal negative. CXR without focal consolidation. Less likely a bacterial process - would hold off on additional abx at this time. Patient given methylprednisolone. Will hold off on addition systemic steroids as there is a limited role in RSV bronchiolitis. Pulmonary toilet - mucinex, IS, flutter value Hold off on additional abx, systemic steroids, inhaled bronchodilators as there is limited evidence on the usefulness in [facility] bronchiolitis CT Chest for incidentally found hilar densities and hypoxia Encourage smoking cessation - nicotine patch as needed (2) Increased anion gap metabolic acidosis: Plan: Likely in the setting of acute illness. Adequately fluid resuscitated. Will continue to monitor. (3) Nodular radiologic density: Plan: Patient with 40 year smoking history. Currently smoking 1-2 cigarettes daily. Never had low-dose CT screening for lung cancer. Incidental finding of hilar densities on CXR. CT for further eval. Encourage smoking cessation (4) Hypertension: Plan: Stable on home diltiazem and indapamide. Continue while inpatient. Code status: full DVT ppx: Lovenox 30 mg SQ QAM FENGI: Gluten free Dispo: MedSurg with Tele Plan Patient seen and examined, chart reviewed, case discussed with Dr. Bass and I agree with the assessment and plan as above except as otherwise noted above. All labs and images reviewed 73-year-old female with a past medical history of hypertension on diltiazem and daily tobacco use with no other medical history/medical problems who presents with shortness of breath/pox and hypoxia and was found to be RSV positive.. +expiratory wheezing. Hx tobacco use, no formal COPD dx. received empiric Zosyn/Doxy on admission; no lobar pneumonia is identified and Pro-Ross is negative will discontinue this with positive RSV bio fire. Possible nodules on x-ray, CT Noncon ordered for assessment. Patient has a mild anion gap and mild acidosis with upper limit of normal pCO2 and upper limit of normal lactate. Nontoxic and is not septic appearing; received IV fluids and steroids and will continue supportive care. Trend BMP daily. Agree w/ above History of Present Illness Chief Complaint: shortness of breath Primary Care Provider: Nilda Moncada MD 73 y/o female presented to the ED with worsening shortness of breath, hypoxia, and tachycardia. Patient was started on empiric abx with doxycycline and Zosyn. Patient also fluid resuscitated with 1.5L NS. Patient also started on methylprednisolone and given a bolus of mag. Patient is a current every day smoker without a diagnosis of COPD or reactive airway disease. Patient did present with a new oxygen requirement up to 3L NC. Patient was started on BiPAP due to her clinical picture. Patient with slight leukocytosis. Patient also with elevated anion gap acidosis with a pH of 7.31. Patient found to be RSV positive. No focal pneumonia seen on CXR. Though there were bilateral hilar/infrahilar densities. Upon my interview, the patient reports symptoms started 09/09 with generally feeling unwell, cough, and mucous production. Symptoms worsened over the last several days with increased respiratory rate and shortness of breath. Patient was also experiencing heart racing as well. Patient doing okay. Is still short of breath. No fevers or chills. Allergies Allergy/AdvReac Type Severity Reaction Status Date / Time Sulfa (Sulfonamide Allergy Mild Vomiting Verified 09/12/23 15:31 Antibiotics) and Rash Home Medications Medication Instructions Recorded Confirmed Type diltiazem HCl 240 mg 240 mg PO DAILY 09/12/23 09/12/23 History capsule,extended release 24 hr fluticasone propionate 50 2 spray intranasal DAILY PRN 09/12/23 09/12/23 History mcg/actuation nasal Allergy Symptoms spray,suspension indapamide 1.25 mg tablet 1.25 mg PO DAILY 09/12/23 09/12/23 History Past Med/Surg History Social History Smoking Status: Current every day smoker Feels Safe at Home: Yes Review of Systems 2 Review of Systems: See HPI Physical Exam 2 Physical Exam: Gen: non-toxic appearing female in NAD, very pleasant and interactive HEENT: AT NC Resp: diminished breath sounds diffusely, mildly decreased air movement, no wheezing, rales, or rhonchi CV: RRR no m/r/g clinically well perfused Abd: non-distended MSK: no obvious deformities Neuro: alert and oriented Psych: appropriate mood and affect Skin: no rashes or bruising Results & Data Results & Data Vital Signs (Past 12 Hours) Vital Signs Temp Pulse Resp BP Pulse Ox O2 Del Method O2 Flow Rate 09/12/23 14:10 85 18 100 BiPAP 09/12/23 14:00 90 16 98 09/12/23 13:56 104/80 09/12/23 13:56 90 14 09/12/23 13:50 116 H 18 09/12/23 13:41 109 H 21 96 09/12/23 13:40 101 H 17 98 09/12/23 13:32 108 H 09/12/23 13:30 110 H 22 95 09/12/23 13:23 96 Nasal Cannula 09/12/23 13:20 157 H 25 H 95 09/12/23 13:16 122/97 09/12/23 13:16 155 H 25 H 93 09/12/23 13:15 153 H 24 93 09/12/23 12:51 37 C 116 H 20 109/70 96 Nasal Cannula 3 FiO2 09/12/23 14:10 09/12/23 14:00 09/12/23 13:56 09/12/23 13:56 09/12/23 13:50 09/12/23 13:41 50 09/12/23 13:40 09/12/23 13:32 09/12/23 13:30 09/12/23 13:23 09/12/23 13:20 09/12/23 13:16 09/12/23 13:16 09/12/23 13:15 09/12/23 12:51 Laboratory Results 09/12/23 13:27 09/12/23 13:27 RSV + Diagnostic Findings Chest X-Ray 09/12/23 13:21 FINDINGS: Lung volumes are normal. There is no consolidation to suggest pneumonia. 1 cm nodular density inferior to the right hilum is noted. 1.1 cm left infrahilar nodular density is noted There is no pneumothorax or pleural effusion. Cardiac size is normal. Mediastinal contours are normal. There is no evidence for pulmonary edema. IMPRESSION: 1. No acute cardiopulmonary findings. 2. Bilateral infrahilar nodular densities, as described above. Nonemergent chest CT is recommended to exclude pulmonary nodules. Resident Activity Tracking Resident Involvement: Resident Care Provided Care Provided: Adult [facility] Medicine
--- NOTE | 2023-09-12 16:49 | Electrocardiogram Report ---
Test Reason : Blood Pressure : / mmHG Vent. Rate : 116 BPM Atrial Rate : 116 BPM P-R Int : 166 ms QRS Dur : 108 ms QT Int : 340 ms P-R-T Axes : 085 267 051 degrees QTc Int : 472 ms Sinus tachycardia with Premature supraventricular complexes Pulmonary disease pattern Right bundle branch block Possible Old Inferior infarct Abnormal ECG No previous ECGs available Confirmed by Norman Brewer ([id number]) on 09/12/2023 4:48:55 PM Referred By: REFERRED SELF Confirmed By:Norman Brewer
[2023-09-12] MEDS ORDERED: FLUTICASONE PROPIONATE NA SPR 16 GM BTL PRN (18:09)
[2023-09-12] MEDS ORDERED: ACETAMINOPHEN 325 MG TAB PO PRN (18:09)
[2023-09-12] MEDS ORDERED: POLYETHYLENE (MIRALAX) 17 GM PACK PO PRN (18:09)
[2023-09-12] MEDS ORDERED: ONDANSETRON INJ 2 MG/ML 2 ML VIAL IV PRN (18:09)
[2023-09-12] MEDS ORDERED: NICOTINE 7 MG/24 HR TDSY TD PRN (18:09)
--- NOTE | 2023-09-12 20:05 | CT Scan Report ---
Exam(s): CT CHEST Without Contrast EXAM: CT Chest Without Intravenous Contrast CLINICAL HISTORY: Reason for exam: hilar nodular densities, hypoxia. TECHNIQUE: Axial computed tomography images of the chest without intravenous contrast. CTDI is 6.42 mGy and DLP is 242.8 mGy-cm. Automated exposure control was utilized for the study. A dose lowering technique was utilized adhering to the principles of ALARA. COMPARISON: No relevant prior studies available. FINDINGS: Lungs: Mild, patchy bilateral opacities, correlate for mild pneumonia. There may be early cavitation in a few of these areas of atelectasis. Recommend follow-up chest CT after treatment to reevaluate. Pleural space: Unremarkable. No pleural effusion or pneumothorax. Heart: Unremarkable. No cardiomegaly. No significant pericardial effusion. No significant coronary artery calcifications. Bones/joints: Degenerative changes of the spine. No acute fracture. No dislocation. Soft tissues: Unremarkable. Vasculature: Atherosclerotic changes of the aorta. No thoracic aortic aneurysm. Lymph nodes: Unremarkable. No enlarged lymph nodes. Liver: Cystic lesion LEFT hepatic lobe measures 2.6 cm. Gallbladder and bile ducts: Cholecystectomy. IMPRESSION: 1. Mild, patchy bilateral opacities, correlate for mild pneumonia. Suspected, early cavitation in a few of these areas of atelectasis. Recommend follow-up chest CT after treatment to reevaluate. 2. No pleural effusion or pneumothorax. Electronically signed by: Rafiq Maldonado MD 09/12/23 20:04 PM
[2023-09-12] MEDS: guaiFENesin 600 MG TABCR PO SCH (20:15)
[2023-09-12] MEDS ORDERED: POTASSIUM CHLORIDE CRTAB 20 MEQ TABCR PO ONE (21:00)
[2023-09-13 05:01] LABS: Appearance Urine Cloudy (Clear); Bacteria Urine Automated Negative (Negative); Bilirubin Urine Negative (Negative); Blood Urine Negative (Negative); Color Urine Yellow; Epithelial Cell Urine Auto >30 /lpf (0-5); Glucose Urine UA Negative (Negative); Ketones Urine Trace (Negative); Leukocyte Esterase Urine Negative (Negative); Nitrite Urine Negative (Negative); Protein Urine 1+ (Negative); RBC Urine Automated 0-4 /hpf (0-4); Specific Gravity Urine 1.023 (1.000-1.030); Urobilinogen Urine Negative (Negative); pH Urine 6.5 (4.5-7.5)
[2023-09-13 05:58] LABS: Hematocrit (blood only) 39.6 % (37.0-47.0); Hemoglobin 13.3 g/dl (12.0-16.0); Mean Corpuscular Hemoglobin 34.9 pg (25.0-34.0); Mean Corpuscular Hgb Conc 33.6 g/dL (32.0-36.0); Mean Corpuscular Volume 103.9 fL (80.0-100.0); Platelet Count 159 K/uL (130-400); RDW Coefficient of Variation 11.9 % (11.5-14.5); RDW Standard Deviation 45.7 fL (36.4-46.3); Red Blood Count 3.81 M/uL (4.20-5.40); White Blood Count 8.38 K/ul (4.8-10.8)
[2023-09-13 06:30] LABS: BUN Creatinine Ratio 23.1 (10-20); Calcium 8.8 mg/dl (8.6-10.3); Creatinine Clr Calc Pharmacy 57.8 ml/min; Est GFR (African American) 102.8 ml/min; Est GFR (Non-African American) 88.7 ml/min; Potassium 3.8 mmol/L (3.5-5.1)
[2023-09-13 06:41] LABS: Basophils # (auto) 0.01 K/uL (0.00-0.20); Basophils % (auto) 0.1 %; Immature Granulocytes # (auto) 0.04 K/uL (0.01-0.20); Immature Granulocytes % (auto) 0.5 %; Lymphocytes # (auto) 1.93 K/uL (1.20-3.40); Monocytes # (auto) 0.45 K/uL (0.11-0.59); Monocytes % (auto) 5.4 %; Neutrophils # (auto) 5.95 K/uL (1.40-6.50); Polychromasia 1+
[2023-09-13] MEDS: ENOXAPARIN INJ 30 MG/0.3 ML SYR SQ SCH (10:33)
[2023-09-13] MEDS: dilTIAZem HCL 240 MG CAPCR PO SCH (10:33)
[2023-09-13] MEDS: guaiFENesin 600 MG TABCR PO SCH ×2 (10:33→20:25)
[2023-09-13] MEDS: INDAPAMIDE 1.25 MG TAB PO SCH (10:33)
[2023-09-13] MEDS: ALBUT/IPRATROP 3MG/0.5MG NEB 3 ML VIAL NEB SCH ×2 (15:20→20:00)
--- NOTE | 2023-09-13 16:09 | Hospitalist Progress Note ---
Date of Service September 13, 2023 Assessment & Plan (1) RSV (respiratory syncytial virus infection): Plan: Pt is a 73 yo female with PMH of HTN, celiac dx, and osteoporosis presenting to the hospital due to SOB w/ hypoxia and URI symptoms. She was found to have RSV. Viral pneumonia secondary to RSV - CXR showed nodular densities for which a CT was recommended for further eval; CT showed bilateral opacities suspicious for mild pneumonia - procal neg, minimal leukocytosis w/ improvement, afebrile; blood cx neg - suspect viral pneumonia secondary to RSV; no ABX needed - s/p 1 dose of methylpred in the ER; no further steroids necessary - will continue with duoneb BID to open airways; continue mucinex, incentive spirometer, flutter valve - plan for discharge tomorrow with home oxygen (medically necessary for 2L with ambulation secondary to hypoxia from viral PNA) HTN - continue home diltiazem and indapamide Tobacco use - pt smokes ~1 pack per week for many years - CT chest as above; she should continue with annual lung cancer screening - encouraged cessation Diet: gluten free VTE ppx: lovenox Code: full Dispo: med/surg (2) Hypertension: (3) Viral pneumonia: (4) Hypoxia: Admission and Anticipated Discharge Date Admission Date: September 13, 2023 Supervising Physician Co-Signing Physician Notes Resident Physician Supervision Note: I independently interviewed and examined the patient and verified the rocha history and physical, reviewed labs and image studies and agree with resident findings and care plan. Breathing is better. no chest pain. no fever vitals noted, heart - tachycardic on exam earlier, lungs - diminished breath sounds across lung field, accessory muscle use and dyspnea with conversation. Acute respiratory failure sec to RSV pneumonia - O2 support. IV steroid in ED. will give another PO dose now. DuoNeb and supportive care. Tobacco use ds - nicotine patch. consider baseline PFT as outpatient. Anticipate d/c home in am Subjective Pt feeling much better this morning. No more SOB, but still requiring oxygen. Review of Systems Review of Systems: As per HPI Physical Exam Physical Exam: Constitutional: well appearing, no acute distress HEENT: normocephalic, no conjunctival injection CV: regular rhythm, regular rate, no murmur, no LE edema Respiratory: Clear to auscultation bilaterally but diminished breath sounds throughout. No rhonchi, wheezes, or crackles. No increased work of breathing MSK: no gross deformities noted Skin: warm, dry, no rashes Neuro: alert, oriented, no FND noted Results & Data Results & Data Vital Signs (Past 12 Hours) Vital Signs Temp Pulse Pulse Pulse Pulse Pulse Pulse 09/13/23 16:08 36.7 C 90 09/13/23 15:25 88 09/13/23 14:00 85 09/13/23 11:54 36.6 C 96 H 09/13/23 10:08 117 H 113 H 117 H 103 H 09/13/23 08:45 36.7 C 72 09/13/23 06:00 76 Resp Resp Resp Resp Resp BP Pulse Ox 09/13/23 16:08 16 112/75 94 09/13/23 15:25 14 92 09/13/23 14:00 09/13/23 11:54 16 128/82 95 09/13/23 10:08 19 21 19 15 09/13/23 08:45 16 123/88 98 09/13/23 06:00 Pulse Ox Pulse Ox Pulse Ox Pulse Ox O2 Del Method O2 Flow Rate O2 Flow Rate 09/13/23 16:08 Nasal Cannula 2 09/13/23 15:25 Room Air 09/13/23 14:00 09/13/23 11:54 Room Air 09/13/23 10:08 87 L 92 86 L 92 1 09/13/23 08:45 Nasal Cannula 2 09/13/23 06:00 O2 Flow Rate 09/13/23 16:08 09/13/23 15:25 09/13/23 14:00 09/13/23 11:54 09/13/23 10:08 2 09/13/23 08:45 09/13/23 06:00 Resident Activity Tracking Resident Involvement: Resident Care Provided Care Provided: Adult Hospital Medicine
[2023-09-13] MEDS ORDERED: predniSONE 20 MG TAB PO STA (16:56)
[2023-09-13] MEDS ORDERED: hydrOXYzine HCl 25 MG TAB PO PRN (17:40)
[2023-09-14 06:26] LABS: Hematocrit (blood only) 36.6 % (37.0-47.0); Hemoglobin 12.6 g/dl (12.0-16.0); Mean Corpuscular Hemoglobin 35.6 pg (25.0-34.0); Mean Corpuscular Hgb Conc 34.4 g/dL (32.0-36.0); Mean Corpuscular Volume 103.4 fL (80.0-100.0); Platelet Count 172 K/uL (130-400); RDW Coefficient of Variation 11.8 % (11.5-14.5); Red Blood Count 3.54 M/uL (4.20-5.40); White Blood Count 6.66 K/ul (4.8-10.8)
[2023-09-14 06:38] LABS: Calcium 8.9 mg/dl (8.6-10.3); Creatinine Clr Calc Pharmacy 76.7 ml/min; Est GFR (African American) 112.1 ml/min; Est GFR (Non-African American) 96.7 ml/min; Potassium 3.4 mmol/L (3.5-5.1)
[2023-09-14] MEDS ORDERED: POTASSIUM CHLORIDE CRTAB 20 MEQ TABCR PO ONE (06:43)
[2023-09-14 07:21] LABS: Basophils # (auto) 0.01 K/uL (0.00-0.20); Basophils % (auto) 0.2 %; Immature Granulocytes # (auto) 0.02 K/uL (0.01-0.20); Immature Granulocytes % (auto) 0.3 %; Lymphocytes # (auto) 2.91 K/uL (1.20-3.40); Lymphocytes % (auto) 43.7 %; Monocytes # (auto) 0.22 K/uL (0.11-0.59); Monocytes % (auto) 3.3 %; Neutrophils % (auto) 52.5 %; Polychromasia 1+
[2023-09-14] MEDS: ALBUT/IPRATROP 3MG/0.5MG NEB 3 ML VIAL NEB SCH (07:48)
[2023-09-14] MEDS: dilTIAZem HCL 240 MG CAPCR PO SCH (09:45)
[2023-09-14] MEDS: INDAPAMIDE 1.25 MG TAB PO SCH (09:45)
[2023-09-14] MEDS: guaiFENesin 600 MG TABCR PO SCH (09:45)
[2023-09-14] MEDS: ENOXAPARIN INJ 30 MG/0.3 ML SYR SQ SCH (09:46)
--- NOTE | 2023-09-14 10:12 | Discharge Summary ---
Date of Service September 14, 2023 Admission HPI Per Admitting Provider 73 y/o female presented to the ED with worsening shortness of breath, hypoxia, and tachycardia. Patient was started on empiric abx with doxycycline and Zosyn. Patient also fluid resuscitated with 1.5L NS. Patient also started on methylprednisolone and given a bolus of mag. Patient is a current every day smoker without a diagnosis of COPD or reactive airway disease. Patient did present with a new oxygen requirement up to 3L NC. Patient was started on BiPAP due to her clinical picture. Patient with slight leukocytosis. Patient also with elevated anion gap acidosis with a pH of 7.31. Patient found to be RSV positive. No focal pneumonia seen on CXR. Though there were bilateral hilar/infrahilar densities. Upon my interview, the patient reports symptoms started 09/09 with generally feeling unwell, cough, and mucous production. Symptoms worsened over the last several days with increased respiratory rate and shortness of breath. Patient was also experiencing heart racing as well. Patient doing okay. Is still short of breath. No fevers or chills. Admission Exam Per Admitting Provider Gen: non-toxic appearing female in NAD, very pleasant and interactive HEENT: AT NC Resp: diminished breath sounds diffusely, mildly decreased air movement, no wheezing, rales, or rhonchi CV: RRR no m/r/g clinically well perfused Abd: non-distended MSK: no obvious deformities Neuro: alert and oriented Psych: appropriate mood and affect Skin: no rashes or bruising Principal Diagnosis RSV viral pneumonia Discharge Exam Constitutional: well appearing, no acute distress HEENT: normocephalic, no conjunctival injection CV: regular rhythm, regular rate, no murmur, no LE edema Respiratory: Clear to auscultation bilaterally with diminished breath sounds th roughout, although improved from yesterday. No rhonchi, wheezes, or crackles. No increased work of breathing MSK: no gross deformities noted Skin: warm, dry, no rashes Neuro: alert, oriented, no FND noted Discharge Data Allergies Allergy/AdvReac Type Severity Reaction Status Date / Time Sulfa (Sulfonamide Allergy Unknown RASH Verified 09/13/23 07:41 Antibiotics) gluten AdvReac Unknown Gastrointestinal Verified 09/13/23 22:09 Upset Consultations 09/12/23 14:56 ED Decision to Admit Stat Ordered Studies 09/12/23 18:09 CT chest diagnostic wo con Urgent IMPRESSION: 1. Mild, patchy bilateral opacities, correlate for mild pneumonia. Suspected, early cavitation in a few of these areas of atelectasis. Recommend follow-up chest CT after treatment to reevaluate. 2. No pleural effusion or pneumothorax. Hospital Course (1) RSV (respiratory syncytial virus infection): Pt is a 73 yo female with PMH of HTN, celiac dx, and osteoporosis presenting to the hospital due to SOB w/ hypoxia and URI symptoms. She was found to have RSV. Viral pneumonia secondary to RSV - CXR showed nodular densities for which a CT was recommended for further eval; CT showed bilateral opacities suspicious for mild pneumonia - procal neg, minimal leukocytosis w/ improvement, afebrile; blood cx neg - suspect viral pneumonia secondary to RSV; no ABX needed - s/p 1 dose of methylpred in the ER with one dose of prednisone 40 mg given prior discharge - improvement noted with duoneb BID given while hospitalized - pt no longer requiring oxygen (down to 92% with ambulation) - discharged with tessalon PRN for cough, albuterol PRN for shortness of breath or wheezing - recommend f/u with PCP; pt may benefit from PFTs in the future if COPD is of concern HTN - continue home diltiazem and indapamide Tobacco use - pt smokes ~1 pack per week for many years - CT chest as above; she should continue with annual lung cancer screening - encouraged cessation Diet: gluten free VTE ppx: lovenox Code: full Dispo: home (2) Hypertension: (3) Viral pneumonia: (4) Hypoxia: Total Time Total Time Spent Total Time Spent (In Minutes): as per attending attestation Discharge Plan Discharge Items Patient Disposition: Home - Self-Care Reason For Visit: HYPOXIA Discharge Diagnosis: viral pneumonia secondary to RSV Activity: Per Instructions section Non-emergency contact: Primary Care Provider Call non-emergency contact if: you have any medication questions and your symptoms worsen Follow-up/Referrals: Nilda Moncada MD [Primary Care Provider] - 09/21/23 10:45 am Diet: Gluten Free Addtl Attending Provider Instructions: You were admitted to the hospital for shortness of breath. You were found to have respiratory syncytial virus (RSV). You were treated with supplemental oxygen because your oxygen levels were low. You were given a dose of steroids in the emergency room, but no further steroids were necessary. You were given breathing treatments which did help your lungs open up and receive oxygen more effectively. It is recommended that you quit smoking. Please talk about this further with your PCP to determine the best route for you to accomplish this goal. A discharge summary will be sent to your primary care physician to ensure continuity of care. Please bring this discharge summary with you to your next office appointment so that your provider can review it at that time. Medications: Your medication list has been reviewed and reconciled upon discharge to ensure accuracy and continuity of care. An updated list of all your medications is included with your hospital discharge paperwork. Please review this list closely and make note of any changes to your medications. - You have been sent an inhaler. This is to be used if your lung feel tight, you are short of breath, or you are wheezing. This is not a daily medication- use only as needed. - You have also been sent the medication benzonatate (Tesmeagan Michaud). You can take this up to 3 times per day as needed for coughing. - Continue all other medications as prior to your hospital stay. Follow up appointments: - Make a follow up appointment with your PCP within the next week. It is very important that you follow up with them shortly after discharge from the hospital. - Keep all of your follow up appointments as already scheduled. If you cannot make an appointment, notify your provider. CONTACT YOUR PRIMARY CARE PROVIDER if you experience any of the following: - Difficulty following your treatment plan - Difficulty taking any of your medications CALL 911 OR GO TO THE EMERGENCY DEPARTMENT if you experience any of the following: - Sudden, severe abdominal pain or nausea/vomiting - Severe chest pain or chest pain that radiates to your jaw or arm - Sudden, severe shortness of breath or difficulty breathing Pending Studies at Discharge: No Stand-Alone Forms: My [employer], Smoking Cessation Medications and DC Order Prescriptions: New albuterol sulfate [Ventolin HFA] 90 mcg/actuation HFA aerosol inhaler 1 inh inhalation Q6H PRN (Reason: shortness of breath or wheezing) Qty: 8.5 1RF benzonatate 100 mg capsule 100 mg PO TID PRN (Reason: cough) Qty: 20 0RF Continued diltiazem HCl 240 mg capsule,extended release 24hr 240 mg PO DAILY Qty: 90 3RF indapamide 1.25 mg tablet 1.25 mg PO DAILY Qty: 90 3RF nitrofurantoin macrocrystal 50 mg capsule 50 mg PO DAILY PRN (Reason: following intercourse for UTI prevention) Qty: 30 3RF Rx Instructions: must administer with a meal/food fluticasone propionate 50 mcg/actuation spray,suspension 2 spray intranasal DAILY PRN (Reason: allergy symptoms) Qty: 16 3RF diltiazem HCl 240 mg capsule,extended release 24hr 240 mg PO DAILY indapamide 1.25 mg tablet 1.25 mg PO DAILY fluticasone propionate 50 mcg/actuation spray,suspension 2 spray INTRANASAL DAILY PRN (Reason: Allergy Symptoms) Discharge Orders: Discharge Order (Routine); Ordered 09/14/23 Ordered By: Shannon Gómez Admission Data Admit Date/Time: 09/13/23 12:23 Attending Provider: Shannon Gómez Admit Provider: Carine Bass Primary Care Provider: Nilda Moncada Other Providers: Chaitanya Marr Other Interventions: Discharge Summary Assessment (RN) Last Done: 09/14/23 10:55 Supervising Physician Co-Signing Physician Notes Resident Physician Supervision Note: I independently interviewed and examined the patient and verified the rocha history and physical, reviewed labs and image studies and agree with resident findings and care plan. Breathing is improved. no chest pain. no fever vitals noted, heart - RRR, lungs - better air entry in lung field, diffuse rhonchi. dyspnea with conversation improved. Acute respiratory failure sec to RSV pneumonia - Off O2 now. Received 3 days of steroid. Home with albuterol MDI. Tobacco use ds - consider baseline PFT as outpatient. Resident Activity Tracking Resident Involvement: Resident Care Provided Care Provided: Adult Hospital Medicine
[2023-09-14] MEDS ORDERED: predniSONE 20 MG TAB PO STA (10:18)
== END 2023-09-14 11:44 | disposition home or self-care (01) | DRG 193 ==
LOC: EDBD → EDINP 12:46 → ED 12:46 → SUATTDRO 15:46 → MERGE 15:46 → 2W 21:26